=== PATIENT | female | born 1980 | race Two or more races ===

== ENCOUNTER 2024-01-11 23:20 | Emergency (ER) | payer MEDICAID ==
[~2024-01-11] VITALS: Ht 160 cm; Wt 88.6 kg
[2024-01-11 23:51] VITALS: BP 143/60; PULSE 76; RESP 17; O2SAT 96
== END 2024-01-12 00:52 | disposition left against medical advice (07) ==
LOC: ER 23:20
DX: M54.2 Cervicalgia (principal); Z53.21 Procedure and treatment not carried out due to patient leaving prior to being seen by health care provider